=== PATIENT | male | born 1985 | race Asian ===

== ENCOUNTER 2019-12-02 15:55 | Emergency (ER) | payer SELFPAY ==
[~2019-12-02] VITALS: Ht 167.6 cm; Wt 68.0 kg
--- NOTE | 2019-12-02 16:07 | NUR ---
ED Nurse Note: Patient will remain in bay until room is available his has an 18G in the left AC. and complaints of extreme headache.
--- NOTE | 2019-12-02 16:20 | NUR ---
ED Nurse Note: pt arrived with LAFD, pt reports severe headaches x 1 day. pt denies head trauma, denies alcohol/ drug use, or n/v/d. pt is unconsolable
[2019-12-02 16:23] VITALS: BP 110/61
[2019-12-02] MEDS ORDERED: DiphenhydrAMINE 50mg/ml Inj IVP ONE (16:30)
[2019-12-02] MEDS ORDERED: Metoclopramide 10mg/2ml Inj IVP ONE (16:30)
[2019-12-02] MEDS ORDERED: Acetaminophen 500mg (ES) tab ORAL ONE (16:45)
--- NOTE | 2019-12-02 17:00 | NUR ---
ED Nurse Note: pt returned from CT
--- NOTE | 2019-12-02 17:20 | Diagnostic Imaging Report ---
Indications: Extreme headache and nausea Technique: Spiral acquisitions obtained through the brain. Angled axial and coronal 5 x 5 mm slices were reconstructed. Total dose length product 2094 mGycm. CTDI vol(s) 53, 53 mGy. Dose reduction achieved using automated exposure control Comparison: None. Findings: Acute intracranial hemorrhage or edema. No mass effect nor midline shift. Normal wynn-white differentiation. Normal size ventricles and extra-axial CSF spaces. Visualized orbits and sinuses are unremarkable. The mastoids are clear. Impression: Negative The CT scanner at [facility] is accredited by the [employer] and the scans are performed using protocols designed to limit radiation exposure to as low as reasonably achievable to attain images of sufficient resolution adequate for diagnostic evaluation.
[2019-12-02] MEDS ORDERED: Ketorolac 30mg Inj ONE (17:38)
[2019-12-02] MEDS ORDERED: Ketorolac 30mg Inj IV ONE (17:45)
[2019-12-02] MEDS ORDERED: LORazepam Inj 2mg/ml 1ml IV ONE (17:45)
--- NOTE | 2019-12-02 17:53 | NUR ---
ED Nurse Note: PT CALMLY ASLEEP IN BED, NOT STATING FURTHER COMPLAINTS AT THIS TIME.
--- NOTE | 2019-12-02 19:00 | NUR ---
HAND-OFF: Report given to GIOVANNA Cox.
--- NOTE | 2019-12-02 19:05 | NUR ---
ED Nurse Note: Repot received from GIOVANNA Ricketts. Pt is resting in bed. Pt notes "I feel much better". Pt is aaox4. NAD.
[2019-12-02] MEDS ORDERED: TYLENOL EXTRA500 MG ORAL (20:14)
--- NOTE | 2019-12-02 20:14 | Emergency Room Report ---
History of Present Illness General Chief Complaint: Altered Mental Status Source: Patient Present Illness HPI 34-year-old male presents to the emergency department complaining of 10 out of 10 severity headache with acute onset since awakening this morning. Patient was brought by ambulance and was agitated upon arrival. Patient denies visual changes, changes to his hearing, dizziness, nausea, vomiting, trauma or fall. Patient denies fevers, chills, neck pain/stiffness or photophobia. Patient denies history of headaches. Patient states he has not taken anything for his pain. Patient reports he does not have any other symptoms other than a generalized headache. Patient is only providing very vague details in describing his headache. Denies imbalance. Denies loss of gross motor movements or weakness in any of the extremities. Denies drug or ETOH use. Denies PMHx. Allergies: Coded Allergies: UNABLE TO ASSESS (Unverified , 12/02/19) COVID-19 Screening Contact w/high risk pt: No Experienced COVID-19 symptoms?: No COVID-19 Testing performed GROOVER RUNNER: No Patient History Past Medical History: see triage record Past Surgical History: unable to obtain Pertinent Family History: unable to obtain Reviewed Nursing Documentation: PMH: Agreed; PSxH: Agreed Nursing Documentation-PMH Past Medical History: No Stated History Review of Systems All Other Systems: negative except mentioned in HPI Physical Exam Vital Signs Date Time Temp Pulse Resp B/P (MAP) Pulse Ox O2 Delivery O2 Flow Rate FiO2 12/02/19 16:02 97.0 64 16 110/61 (77) 97 Room Air Medical Decision Making PA Attestation Dr. Ambrosio is my supervising Physician whom patient management has been discussed with. Diagnostic Impression: Primary Impression: Generalized headache Additional Impression: Anxiousness ER Course 34-year-old male presents to the emergency department complaining of 10 out of 10 severity headache with acute onset since awakening this morning. Patient was brought by ambulance and was agitated upon arrival. Patient denies visual changes, changes to his hearing, dizziness, nausea, vomiting, trauma or fall. Patient denies fevers, chills, neck pain/stiffness or photophobia. Patient denies history of headaches. Patient states he has not taken anything for his pain. Patient reports he does not have any other symptoms other than a generalized headache. Patient is only providing very vague details in describing his headache. Denies imbalance. Denies loss of gross motor movements or weakness in any of the extremities. Denies drug or ETOH use. Denies PMHx. Ddx considered but are not limited to migraine, SAH, Pseudomotor Cerebri, Mass lesion, Cluster VALERO, Tension VALERO, Post lumbar puncture VALERO. Vital signs: are WNL, pt. is afebrile H&PE are most consistent with primary headache Pt. does not demonstrate any focal neurological deficits. PT. is non-toxic in appearance. Pt. does present moderately anxious ORDERS: - CT head without contrast ED INTERVENTIONS: - 2 LIter NS Bolus -Tylenol 1g -Reglan 5mg IV -Benadryl 25mg IV -1mg Ativan IV - Toradol IV Pt. allowed to rest under observation in ED x 3 hours. PT. reports symptoms have resolved upon re-assessment by attending MD. PT. reports feeling well enough to go home. D/w pt. results of his CT imaging. DISCHARGE: At this time pt. is stable for d/c to home. Will provide printed patient care instructions, and any necessary prescriptions. Care plan and follow up instructions have been discussed with the patient prior to discharge. Labs Test 12/02/19 16:37 Urine Opiates Screen Negative (NEGATIVE) Urine Barbiturates Screen Negative (NEGATIVE) Phencyclidine (PCP) Screen Negative (NEGATIVE) Urine Amphetamines Screen Negative (NEGATIVE) Urine Benzodiazepines Screen Negative (NEGATIVE) Urine Cocaine Screen Negative (NEGATIVE) Urine Marijuana (THC) Screen Positive (NEGATIVE) CT/MRI/US Diagnostic Results CT/MRI/US Diagnostic Results : Imaging Test Ordered: CT Head No Contrast Impression " No evidence of acute fracture, hemorrhage, or intracranial process". --Per official radiology report- Please see report for specific details. Last Vital Signs Date Time Temp Pulse Resp B/P (MAP) Pulse Ox O2 Delivery O2 Flow Rate FiO2 12/02/19 17:53 97.0 12/02/19 16:23 64 16 110/61 97 Room Air Status: improved Disposition: HOME, SELF-CARE Condition: Stable Referrals: NOT CHOSEN IPA/,REFERRING (PCP) Jono Chavez Comp. [facility] Patient Instructions: General Headache Without Cause Additional Instructions: Take medications as directed. Follow up with a Primary Care Provider in 3-5 days For a referral to have NEUROLOGIST Evaluation, even if your symptoms have resolved. --Please review list of primary care clinics, if you do not already have a primary care provider Return sooner to ED if new symptoms occur, or current symptoms become worse. - Please note that this Emergency Department Report was dictated using [employer] resolution analyst technology software, occasionally this can lead to erroneous entry secondary to interpretation by the dictation equipment. Jennifer Ahn Dec 02, 2019 20:14
[2019-12-02 20:20] VITALS: BP 117/66
--- NOTE | 2019-12-02 20:20 | NUR ---
ER DISCHARGE NOTE: Patient is cleared to be discharged per ERMD, pt is aox4, on room air, with stable vital signs. pt was given dc and prescription instructions, pt was able to verbalize understanding, pt id band and iv site removed without complications. pt is able to ambulate with steady gait. pt took all belongings.
== END 2019-12-02 20:20 | disposition home or self-care (01) ==
LOC: EDBD 15:55 → EMR 17:00
DX: R51 Headache (principal); F41.9 Anxiety disorder, unspecified
CPT/HCPCS: 70450; 80307; 96361; 96374; 96375; 99284; J1200; J1885; J2765; J7030